=== PATIENT | male | born 1980 | race African-American/Black ===

== ENCOUNTER 2020-10-06 09:31 | Emergency (ER) | payer MEDICAID, MEDICARE ==
[~2020-10-06] VITALS: Ht 175.3 cm; Wt 106.1 kg
[2020-10-06 09:47] VITALS: BP 131/90
[2020-10-06] MEDS ORDERED: KETOROLAC TROMETH 60MG/2ML VIAL IM ONE (11:00)
== END 2020-10-06 12:19 | disposition home or self-care (01) ==
LOC: ER 09:31
DX: S39.012A Strain of muscle, fascia and tendon of lower back, initial encounter (principal); X50.9XXA Other and unspecified overexertion or strenuous movements or postures, initial encounter; Y93.89 Activity, other specified; Y92.89 Other specified places as the place of occurrence of the external cause; Y99.8 Other external cause status
CPT/HCPCS: 72100; 96372; 99283; J1885